=== PATIENT | male | born 1950 | race Caucasian/White ===

== ENCOUNTER 2016-11-04 07:31 | Inpatient (IN) ==
[2016-10-29 13:11] LABS: Basophils # (Auto) 0 K/mcL (0.0-0.3); Basophils % (Auto) 0.5 % (0.0-2.0); Eosinophils # (Auto) 0.1 K/mcL (0.0-0.7); Eosinophils % (Auto) 1.9 % (0.0-7.0); Granulocytes % (Auto) 63.9 % (38.0-78.0); Lymphocytes # (Auto) 1.5 K/mcL (1.5-4.8); Lymphocytes % (Auto) 24.6 % (15.5-49.0); Mean Cell Volume 109.1 fL (80.0-100.0); Mean Corpuscular HGB Conc 34.6 g/dL (31.0-36.0); Mean Corpuscular Hemoglobin 37.8 pg (26.0-34.0); Monocytes # (Auto) 0.6 K/mcL (0.1-0.9); Monocytes % (Auto) 9.1 % (1.0-12.0); Platelet Count 227 K/mcL (140-440); RBC 4.11 M/mcL (4.50-5.90); Red Cell Distribution Width 12.9 % (11.5-14.5)
[2016-10-29 13:29] LABS: Appearance,Urine CLEAR; Bilirubin,Urine NEG (NEG); Color,Urine YELLOW; Glucose,Urine (UA) NEGATIVE (NEG); Leukocyte Esterase,Urine NEG /uL (NEG); Nitrate,Urine NEG (NEG); Protein,Urine NEG (NEG); Urine Blood NEG mg/dL (<0.03)
[2016-10-29 13:30] LABS: Blood Urea Nitrogen 16 mg/dl (8-23)
[~2016-11-04 07:31] MED LIST: ACETAMINOPHEN 500 MG TABLET PO SCH; CELECOXIB 200 MG CAPSULE PO SCH; KETOROLAC 30 MG, ROPIVACAINE HCL/PF 49.5 ML, EPINEPHrine 0.5 MG, 0.9 % SODIUM CHLORIDE ... IJ SCH; PREGABALIN 75 MG CAPSULE PO SCH; ceFAZolin 1 GM VIAL IV SCH; oxyCODONE 10 MG TAB.ER.12H PO SCH
[2016-11-04] MEDS ORDERED: LIDOCAINE HCL/PF 100 MG/5 ML SYRINGE IV ONE (09:15)
[2016-11-04] MEDS ORDERED: GLYCOPYRROLATE 0.2 MG/ML VIAL IV ONE (09:15)
[2016-11-04] MEDS ORDERED: fentaNYL 250 MCG/5 ML VIAL IV ONE (09:15)
[2016-11-04] MEDS ORDERED: PROPOFOL 200 MG/20 ML VIAL IV ONE (09:15)
[2016-11-04] MEDS ORDERED: TRANEXAMIC ACID 1,000 MG/10 ML VIAL IV ONE ×3 (09:15→12:21)
[2016-11-04] MEDS ORDERED: DEXAMETHASONE 10 MG/ML VIAL IV ONE (09:15)
[2016-11-04] MEDS ORDERED: MIDAZOLAM 5 MG/5 ML VIAL IV ONE (09:15)
[2016-11-04] MEDS ORDERED: ROPIVACAINE HCL/PF 30 ML VIAL IJ ONE (09:15)
[2016-11-04] MEDS ORDERED: ePHEDrine 50 MG/ML AMPUL IV ONE (09:15)
[2016-11-04] MEDS ORDERED: ONDANSETRON 4 MG/2 ML VIAL IV ONE (09:15)
[2016-11-04] MEDS ORDERED: GENTAMICIN SULFATE 800 MG/20 ML VIAL IR ONE (10:25)
[2016-11-04] MEDS ORDERED: ONDANSETRON 4 MG/2 ML VIAL IV PRN ×2 (10:26→12:23)
[2016-11-04] MEDS ORDERED: NALOXONE HCL 0.4 MG/ML VIAL IV PRN (10:26)
[2016-11-04] MEDS ORDERED: PROMETHAZINE 25 MG/ML VIAL IV PRN (10:26)
[2016-11-04] MEDS ORDERED: METOPROLOL TARTRATE 5 MG/5 ML VIAL IV PRN (10:26)
[2016-11-04] MEDS ORDERED: BENZOCAINE/MENTHOL 1 LOZENGE PO PRN ×2 (10:26→12:23)
[2016-11-04] MEDS ORDERED: diphenhydrAMINE 50 MG/ML VIAL IV PRN (10:26)
[2016-11-04] MEDS ORDERED: fentaNYL 100 MCG/2 ML VIAL IV PRN (10:26)
[2016-11-04] MEDS ORDERED: ePHEDrine 50 MG/ML AMPUL IV PRN (10:26)
[2016-11-04] MEDS ORDERED: IPRATROPIUM/ALBUTEROL 3 ML AMPUL.NEB NEB PRN (10:26)
[2016-11-04] MEDS ORDERED: METHOCARBAMOL 1,000 MG/10 ML VIAL IV PRN (10:26)
[2016-11-04] MEDS ORDERED: FLUMAZENIL 0.1 MG/ML ML IV PRN (10:26)
[2016-11-04] MEDS ORDERED: MEPERIDINE 25 MG/ML SYRINGE IV PRN (10:26)
[2016-11-04] MEDS ORDERED: ATROPINE SULFATE 0.4 MG/ML VIAL IV PRN (10:26)
[2016-11-04] MEDS ORDERED: LACTATED RINGERS 1,000 ML IV SCH (10:30)
--- NOTE | 2016-11-04 11:05 | Brief Operative Note ---
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
--- NOTE | 2016-11-04 11:16 | Discharge Summary ---
Ortho Discharge - TKA - Patient Instructions Diet: Regular Diet Activity: activity as tolerated, weight bearing as tolerated Total Knee Protocol: For Total Knee: Start ROM BEN with stationary bike or rocking chair. Work on gaining full extension of knee. Posterior dislocation precautions provided. Hip abductor strengthening and gait training instructions provided. Apply Cryocuff as instructed. Dressing Care: Aquacel Ag - leave on for 5 days - Follow Up Plan Follow Up Appointments: Chidi Hoyt MD [Physician] - 11/21/16 10:00 am Disposition: Home, Self-Care Prognosis: Good Rehab Potential: Good I certify that the patient requires SNF services: No Overall status at discharge: patient is progressing back to baseline - Orders For Discharge Additional Discharge Orders: OT Discharge Order Location: Determined By Patient Physical Therapy at Discharge - TKA Location: Determined By Patient CPM Discharge Order Location: Determined By Patient
[2016-11-04] MEDS: HYDROmorphone 2 MG/ML SYRINGE IV PRN ×4 (11:45→12:30)
--- NOTE | 2016-11-04 12:07 | XRay Report ---
CLINICAL INFORMATION: Postsurgical follow-up TECHNIQUE: AP and crosstable lateral left knee COMPARISON: MRI scan dated 01/25/2013 FINDINGS: Status post left total knee arthroplasty. Femoral and tibial complements are in anatomic positions. There is soft tissue and intra-articular postoperative gas. IMPRESSION: Status post left total knee arthroplasty. Interpreted and Authenticated by: Abdelrahman King 11/04/16
[2016-11-04] MEDS ORDERED: HYDROmorphone 2 MG/ML SYRINGE IV PRN (12:23)
[2016-11-04] MEDS ORDERED: MAGNESIUM HYDROXIDE 30 ML ORAL.SUSP PO PRN (12:23)
[2016-11-04] MEDS ORDERED: TEMAZEPAM 15 MG CAPSULE PO PRN (12:23)
[2016-11-04] MEDS ORDERED: ACETAMINOPHEN 325 MG TABLET PO PRN (12:23)
[2016-11-04] MEDS ORDERED: BISACODYL 10 MG SUPP.RECT PR PRN (12:23)
[2016-11-04] MEDS ORDERED: POLYETHYLENE GLYCOL 3350 17 GM PACKET PO PRN (12:23)
[2016-11-04] MEDS ORDERED: HYDROcodone/APAP 10/325MG TABLET PO PRN (12:23)
[2016-11-04] MEDS ORDERED: FLEETS ADULT ENEMA PR PRN (12:23)
[2016-11-04] MEDS ORDERED: traMADol 50 MG TABLET PO PRN (12:26)
[2016-11-04] MEDS ORDERED: ZOLPIDEM 10 MG TABLET PO PRN (12:26)
[2016-11-04] MEDS: 0.45 % SODIUM CHLORIDE 1,000 ML IV SCH ×2 (13:56→15:44)
[2016-11-04] MEDS ORDERED: 0.9 % SODIUM CHLORIDE 10 ML SYRINGE IV SCH (14:00)
[2016-11-04] MEDS ORDERED: ceFAZolin 1 GM VIAL IV SCH (14:00)
[2016-11-04] MEDS ORDERED: KETOROLAC 15 MG/ML VIAL IV SCH (18:00)
[2016-11-04] MEDS ORDERED: SENNOSIDES 1 TABLET PO SCH (21:00)
[2016-11-04] MEDS ORDERED: DONEPEZIL 10 MG TABLET PO SCH (21:00)
[2016-11-04] MEDS ORDERED: ASPIRIN 325 MG ENTERIC COATED TABLET PO SCH (21:00)
[2016-11-04] MEDS ORDERED: DOCUSATE SODIUM 100 MG CAPSULE PO SCH (21:00)
[2016-11-04] MEDS ORDERED: CARBIDOPA/LEVODOPA 10/100 TABLET PO SCH (21:00)
[2016-11-04] MEDS ORDERED: PRAMIPEXOLE 1 MG TABLET PO SCH (21:00)
[2016-11-05] MEDS ORDERED: NADOLOL 40 MG TABLET PO SCH (09:00)
== END 2016-11-04 18:45 | disposition home or self-care (01) | DRG 470 ==
LOC: SUR 07:31 → MEDSUR 12:45
PROVIDERS: ADMIT Orthopaedic Surgery; ATTEND Orthopaedic Surgery

== ENCOUNTER 2024-09-06 15:43 | Inpatient (IN) ==
[2024-09-06] MEDS ORDERED: IOPAMIDOL 100 ML BOTTLE IV ONE (15:44)
[2024-09-06 16:45] LABS: Basophils # (Auto) 0.04 K/mcL (0.00-0.30); Basophils % (Auto) 0.2 % (0.0-2.0); Eosinophils # (Auto) 0.07 K/mcL (0.00-0.70); Eosinophils % (Auto) 0.3 % (0.0-7.0); Hemoglobin 12.7 g/dL (13.7-17.5); Lymphocytes % (Auto) 6.7 % (15.5-49.0); Mean Cell Volume 101.5 fL (80.0-100.0); Mean Corpuscular HGB Conc 31.8 g/dL (31.0-36.0); Mean Platelet Volume 10.2 fL (8.8-12.5); Neutrophils % (Auto) 80.5 % (38.0-78.0); Platelet Count 305 K/mcL (140-440); RBC 3.94 M/mcL (4.63-6.08); Red Cell Distribution Width 14.4 % (11.5-14.5); WBC 20.9 K/mcL (4.5-11.0)
[2024-09-06 17:05] LABS: INR 1.1 (0.9-1.1); Prothrombin Time 14.7 sec (11.9-14.5)
[2024-09-06 17:07] LABS: ALT/SGPT 10 U/L (<40); AST/SGOT 15 U/L (<40); Albumin 3.2 gm/dL (3.2-5.2); Albumin/Globulin Ratio 0.9 (1.0-2.3); Alkaline Phosphatase 78 U/L (39-117); Bilirubin,Total 0.8 mg/dL (0.1-1.0); Blood Urea Nitrogen 18 mg/dL (8-23); Calcium 8.9 mg/dL (8.6-10.4); Carbon Dioxide 22 mmol/L (22-30); Chloride 97 mmol/L (96-108); Globulin 3.5 gm/dL (2.2-3.7); Glomerular Filtration Rate 83; Glucose 127 mg/dL (70-105); Potassium 4.3 mmol/L (3.3-5.1); Sodium 132 mmol/L (133-145)
[2024-09-06 18:36] LABS: Blood Urea Nitrogen 19 mg/dL (8-23); Carbon Dioxide 23 mmol/L (22-30); Chloride 96 mmol/L (96-108); Glomerular Filtration Rate 83; Glucose 129 mg/dL (70-105); Potassium 4.3 mmol/L (3.3-5.1); Sodium 131 mmol/L (133-145)
[2024-09-06] MEDS: cefTRIAXone 2 GM in DEXTROSE 5% IN WATER 50 ML IV ONE (19:02)
[2024-09-06 19:06] LABS: Appearance,Urine Clear (Clear); Bacteria,Urine Rare /hpf (0); Bilirubin,Urine Negative (Negative); Color,Urine Yellow; Glucose,Urine (UA) Negative (Negative); Ketones,Urine Negative (Negative); Leukocyte Esterase,Urine Negative /uL (Negative); Nitrate,Urine Negative (Negative); PH,Urine 5.5 (5.0-9.0); Protein,Urine 100 mg/dL (Negative); Specific Gravity,Urine 1.015 (1.000-1.035); Urine Blood Small ery/mcL (Negative); Urine Hyaline Cast 18 /lph (0-2); Urine RBC 1 /hpf (0-3); Urine Squamous Epithelial Cell 0 /hpf (0-4); Urine WBC 1 /hpf (0-4)
[2024-09-06] MEDS: ACETAMINOPHEN 1,000 MG/100 ML BAG IV ONE (19:15)
[2024-09-06] MEDS: 0.9 % SODIUM CHLORIDE 500 ML IV ONE (19:34)
[2024-09-06] MEDS: AZITHROMYCIN 500 MG in 0.9 % SODIUM CHLORIDE 250 ML IV ONE (20:04)
[2024-09-06] MEDS ORDERED: POLYETHYLENE GLYCOL 3350 17 GM PACKET PO PRN (21:29)
[2024-09-06] MEDS ORDERED: MAGNESIUM SULFATE 2 GM/50 ML BAG IV PRN (21:29)
[2024-09-06] MEDS ORDERED: SENNOSIDES 1 TABLET PO PRN (21:29)
[2024-09-06] MEDS ORDERED: POTASSIUM CHLORIDE 20 MEQ TABLET PO PRN ×2 (21:29)
[2024-09-06] MEDS ORDERED: POTASSIUM CHLORIDE 40 MEQ in DEXTROSE 5% IN WATER 500 ML IV PRN (21:29)
[2024-09-06] MEDS ORDERED: ONDANSETRON 4 MG/2 ML VIAL IV PRN (21:29)
[2024-09-06] MEDS ORDERED: METOCLOPRAMIDE 10 MG/2 ML VIAL IV PRN (21:29)
[2024-09-06] MEDS: DOCUSATE SODIUM 100 MG CAPSULE PO SCH (22:38)
[2024-09-06] MEDS: VANCOMYCIN 1,000 MG in 0.9 % SODIUM CHLORIDE 250 ML IV ONE (22:39)
[2024-09-06] MEDS: cefTRIAXone 1 GM VIAL IV SCH (22:47)
[2024-09-07 06:19] LABS: Hematocrit 37.3 % (40.1-51.0); Mean Cell Volume 101.9 fL (80.0-100.0); Mean Corpuscular HGB Conc 32.2 g/dL (31.0-36.0); Mean Platelet Volume 10.3 fL (8.8-12.5); Platelet Count 296 K/mcL (140-440); RBC 3.66 M/mcL (4.63-6.08); Red Cell Distribution Width 14.3 % (11.5-14.5); WBC 14.3 K/mcL (4.5-11.0)
[2024-09-07 06:27] LABS: ALT/SGPT 8 U/L (<40); AST/SGOT 14 U/L (<40); Albumin/Globulin Ratio 0.9 (1.0-2.3); Alkaline Phosphatase 73 U/L (39-117); Bilirubin,Direct 0.4 mg/dL (<0.3); Bilirubin,Total 0.6 mg/dL (0.1-1.0); Blood Urea Nitrogen 20 mg/dL (8-23); Calcium 8.8 mg/dL (8.6-10.4); Carbon Dioxide 24 mmol/L (22-30); Chloride 100 mmol/L (96-108); Globulin 3.3 gm/dL (2.2-3.7); Glomerular Filtration Rate 83; Glucose 113 mg/dL (70-105); Lactate Dehydrogenase 184 U/L (135-225); Potassium 4.2 mmol/L (3.3-5.1); Sodium 134 mmol/L (133-145); Triglycerides 37 mg/dL (<150); Uric Acid 5.2 mg/dL (2.5-8.0)
[2024-09-07 07:11] LABS: Band Neutrophils % 1 % (0-10); Lymphocytes % 6 % (15-49); Monocytes % (Manual) 10 % (1-12); Platelet Estimate NORMAL (Normal); RBC Morphology NORMAL (Normal); Segmented Neutrophils % 83 % (38-78)
[2024-09-07] MEDS ORDERED: VANCOMYCIN PER PHARMACY IV SCH (07:37)
[2024-09-07] MEDS: ENOXAPARIN 40 MG/0.4 ML SYRINGE SQ SCH (09:12)
[2024-09-07] MEDS: VANCOMYCIN 750 MG in 0.9 % SODIUM CHLORIDE 250 ML IV SCH (09:14)
[2024-09-07] MEDS: cefTRIAXone 1 GM VIAL IV SCH (09:16)
[2024-09-07] MEDS: AZITHROMYCIN 500 MG in 0.9 % SODIUM CHLORIDE 250 ML IV SCH (10:43)
[2024-09-07] MEDS: predniSONE 10 MG TABLET PO SCH (12:31)
[2024-09-07] MEDS: IPRATROPIUM/ALBUTEROL 3 ML AMPUL.NEB NEB PRN (13:52)
[2024-09-07] MEDS: CARVEDILOL 3.125 MG TABLET PO SCH (17:32)
[2024-09-07] MEDS: QUEtiapine 25 MG TABLET PO SCH (17:33)
[2024-09-07] MEDS ORDERED: QUEtiapine 25 MG TABLET PO SCH (21:00)
[2024-09-07] MEDS: MELATONIN 3 MG TABLET PO SCH (21:05)
[2024-09-07] MEDS: DONEPEZIL 10 MG TABLET PO SCH (21:05)
[2024-09-07] MEDS: morphine 4 MG/ML VIAL IV PRN (22:12)
[2024-09-07] MEDS: oxyCODONE IR 5 MG TABLET PO PRN (22:13)
[2024-09-07] MEDS: morphine 4 MG/ML VIAL ONE (22:29)
[2024-09-07] MEDS: oxyCODONE IR 5 MG TABLET PO ONE (22:30)
[2024-09-07] MEDS: FLUTICASONE/SALMETEROL 500/50 INHALER #14 INH SCH (22:47)
[2024-09-08 08:12] LABS: Erythrocyte Sedimentation Rate 57 mm/hr (0-20)
[2024-09-08 08:15] LABS: Basophils # (Auto) 0.06 K/mcL (0.00-0.30); Basophils % (Auto) 0.6 % (0.0-2.0); Hematocrit 32.6 % (40.1-51.0); Hemoglobin 10.2 g/dL (13.7-17.5); Lymphocytes # (Auto) 1.68 K/mcL (1.50-4.80); Lymphocytes % (Auto) 16.7 % (15.5-49.0); Mean Cell Volume 103.2 fL (80.0-100.0); Mean Corpuscular HGB Conc 31.3 g/dL (31.0-36.0); Monocytes # (Auto) 1.02 K/mcL (0.10-0.90); Monocytes % (Auto) 10.2 % (1.0-12.0); Neutrophils % (Auto) 71.3 % (38.0-78.0); Platelet Count 269 K/mcL (140-440); RBC 3.16 M/mcL (4.63-6.08); Red Cell Distribution Width 14.1 % (11.5-14.5)
[2024-09-08 08:36] LABS: ALT/SGPT 13 U/L (<40); AST/SGOT 15 U/L (<40); Albumin 2.7 gm/dL (3.2-5.2); Albumin/Globulin Ratio 0.9 (1.0-2.3); Alkaline Phosphatase 67 U/L (39-117); Bilirubin,Total 0.3 mg/dL (0.1-1.0); Blood Urea Nitrogen 20 mg/dL (8-23); Calcium 8.7 mg/dL (8.6-10.4); Carbon Dioxide 25 mmol/L (22-30); Chloride 102 mmol/L (96-108); Glomerular Filtration Rate 87; Glucose 94 mg/dL (70-105); Potassium 3.9 mmol/L (3.3-5.1); Sodium 136 mmol/L (133-145)
[2024-09-08] MEDS: MEMANTINE 10 MG TABLET PO SCH (09:06)
[2024-09-08] MEDS: PARoxetine 20 MG TABLET PO SCH (09:06)
[2024-09-08] MEDS: FUROSEMIDE 40 MG TABLET PO SCH (09:06)
[2024-09-08] MEDS: LACTOBACILLUS 1 CAPSULE PO SCH (21:02)
[2024-09-09 05:54] LABS: Basophils # (Auto) 0.08 K/mcL (0.00-0.30); Basophils % (Auto) 0.9 % (0.0-2.0); Eosinophils # (Auto) 0.24 K/mcL (0.00-0.70); Eosinophils % (Auto) 2.7 % (0.0-7.0); Hematocrit 33.9 % (40.1-51.0); Hemoglobin 10.5 g/dL (13.7-17.5); Lymphocytes # (Auto) 1.89 K/mcL (1.50-4.80); Lymphocytes % (Auto) 21.4 % (15.5-49.0); Mean Cell Volume 104.3 fL (80.0-100.0); Mean Platelet Volume 9.9 fL (8.8-12.5); Monocytes # (Auto) 0.82 K/mcL (0.10-0.90); Monocytes % (Auto) 9.3 % (1.0-12.0); Neutrophils % (Auto) 65.5 % (38.0-78.0); Platelet Count 299 K/mcL (140-440); RBC 3.25 M/mcL (4.63-6.08); Red Cell Distribution Width 14.1 % (11.5-14.5); WBC 8.8 K/mcL (4.5-11.0)
[2024-09-09 06:11] LABS: ALT/SGPT 15 U/L (<40); AST/SGOT 19 U/L (<40); Albumin 2.7 gm/dL (3.2-5.2); Albumin/Globulin Ratio 0.9 (1.0-2.3); Alkaline Phosphatase 68 U/L (39-117); Bilirubin,Total < 0.2 mg/dL (0.1-1.0); Blood Urea Nitrogen 31 mg/dL (8-23); Calcium 8.3 mg/dL (8.6-10.4); Carbon Dioxide 25 mmol/L (22-30); Chloride 107 mmol/L (96-108); Globulin 3.1 gm/dL (2.2-3.7); Glomerular Filtration Rate 83; Glucose 89 mg/dL (70-105); Potassium 4.3 mmol/L (3.3-5.1); Sodium 140 mmol/L (133-145)
[2024-09-09] MEDS: PANTOPRAZOLE 40 MG PACKET PO SCH (07:27)
[2024-09-09] MEDS: diphenhydrAMINE 25 MG CAPSULE PO PRN (22:45)
[2024-09-09] MEDS: diphenhydrAMINE 25 MG CAPSULE ONE (23:52)
[2024-09-10 08:14] LABS: Basophils # (Auto) 0.08 K/mcL (0.00-0.30); Basophils % (Auto) 0.7 % (0.0-2.0); Eosinophils # (Auto) 0.35 K/mcL (0.00-0.70); Eosinophils % (Auto) 3.2 % (0.0-7.0); Hematocrit 33.8 % (40.1-51.0); Hemoglobin 10.6 g/dL (13.7-17.5); Lymphocytes # (Auto) 1.88 K/mcL (1.50-4.80); Lymphocytes % (Auto) 17.3 % (15.5-49.0); Mean Corpuscular HGB Conc 31.4 g/dL (31.0-36.0); Mean Platelet Volume 9.8 fL (8.8-12.5); Monocytes # (Auto) 0.97 K/mcL (0.10-0.90); Monocytes % (Auto) 8.9 % (1.0-12.0); Neutrophils % (Auto) 69.7 % (38.0-78.0); Platelet Count 331 K/mcL (140-440); RBC 3.25 M/mcL (4.63-6.08); Red Cell Distribution Width 13.9 % (11.5-14.5); WBC 10.9 K/mcL (4.5-11.0)
[2024-09-10 08:36] LABS: ALT/SGPT 12 U/L (<40); AST/SGOT 16 U/L (<40); Albumin 2.8 gm/dL (3.2-5.2); Albumin/Globulin Ratio 0.9 (1.0-2.3); Alkaline Phosphatase 66 U/L (39-117); Bilirubin,Total 0.2 mg/dL (0.1-1.0); Blood Urea Nitrogen 27 mg/dL (8-23); Calcium 8.5 mg/dL (8.6-10.4); Carbon Dioxide 26 mmol/L (22-30); Chloride 103 mmol/L (96-108); Globulin 3.1 gm/dL (2.2-3.7); Glomerular Filtration Rate 83; Glucose 105 mg/dL (70-105); Potassium 3.9 mmol/L (3.3-5.1); Sodium 137 mmol/L (133-145)
[2024-09-10] MEDS: LINEZOLID 600 MG TABLET PO SCH (10:15)
[2024-09-10 11:21] VITALS: O2SAT 94
[2024-09-10 15:38] VITALS: TEMP 96.9
== END 2024-09-10 16:43 | DRG 871 ==
LOC: ED 15:43 → ICU 21:15 → MEDSUR 09-07 12:33
PROVIDERS: ADMIT Internal Medicine; ATTEND Internal Medicine